=== PATIENT | male | born 1965 | race Caucasian/White ===

== ENCOUNTER 2016-11-22 22:12 | Emergency (ER) | payer OTHER ==
--- NOTE | ~2016-11-22 | ER ---
PATIENT'S NAME: MARY ACUNA [facility] AGE: 51 Y [address] ROOM: [place], [place] [address] LOCATION: [facility] ADMIT DATE: 11/22/2016 ER/Outpatient Report DISCHARGE DATE: 11/22/2016 FAMILY PHYSICIAN: Physician, Unknown ATTENDING PHYSICIAN: Hiram Christensen Admission date and time documented in the medical record. I saw the patient at 2220 hours. CHIEF COMPLAINT: Medical clearance. HISTORY OF PRESENT ILLNESS: The patient is a 51-year-old male, who was brought to the emergency room by [facility] for medical clearance for long-term. He blew a 0.325 alcohol on Breathalyzer. The patient has no pain. No recent coughs, colds, flus, fever, chills, or sweats. No chest pain or shortness of breath. No abdominal pain, nausea, vomiting, or diarrhea. No incontinence of stool or urine. No joint or muscle swelling, redness, or pain. No skin eruptions or rash. No fall or trauma. No headache, eyes, ears, nose, throat, neck, or spine pain. No lightheadedness, dizziness, syncope, or near syncope. No history of neuro changes or psych issues. HOME MEDICATIONS: See attached medication list. ALLERGIES: PENICILLIN AND CEFZIL. SOCIAL HISTORY: The patient smokes a pack of cigarettes per day. Drinks alcohol on a daily basis. SIGNIFICANT PAST MEDICAL HISTORY: Hypertension, nephrolithiasis, cervical degenerative disk disease, tobacco abuse, alcohol abuse, gastroesophageal reflux, and dyslipidemia. OPERATIONS: Neck surgery, left knee ACL repair, and right knee meniscal repair. REVIEW OF SYSTEMS: All systems reviewed by me are negative with the exception of those discussed in the history of present illness. PHYSICAL EXAMINATION: PATIENT'S NAME: MARY ACUNA [facility] AGE: 51 Y [address] ROOM: [place], [place] [address] LOCATION: [facility] ADMIT DATE: 11/22/2016 ER/Outpatient Report DISCHARGE DATE: 11/22/2016 FAMILY PHYSICIAN: Physician, Unknown ATTENDING PHYSICIAN: Hiram Christensen VITAL SIGNS: Temperature 97.8 tympanic, pulse 89, respirations 16, blood pressure 139/88, and O2 saturation on room air is 96%. HEAD: Normocephalic. EYES: Extraocular muscles intact. PERRL. EARS, NOSE, THROAT: Clear. Mucous membranes moist. Teeth, jaw intact. NECK: No nuchal rigidity. No findings of adenopathy. LUNGS: Clear. No rales, rhonchi, or wheezes. HEART: Regular. Pulses are palpable. ABDOMEN: Soft, nondistended, and nontender. Good bowel tones. No organomegaly or abnormal mass palpable. EXTREMITIES: No peripheral edema, cyanosis, or deformity. NEUROVASCULAR: Intact. SKIN: Clear. No skin eruptions or rash. IMPRESSION: 1. Medical clearance. 2. Acute alcohol intoxication and alcohol abuse. 3. Tobacco abuse. 4. Hypertension. PLAN: The patient was discharged from the emergency department in [facility] custody for long-term. Follow up with personal physician as needed. MD JASBIR BOWERS/modl /[id number] d: 11/23/16 0007 t: 11/23/16 1814, OUTPATIENT REPORT
== END 2016-11-22 22:34 | disposition disaster alternative care site (69) ==
LOC: GMED 22:12
DX: F10.129 Alcohol abuse with intoxication, unspecified (principal); F17.210 Nicotine dependence, cigarettes, uncomplicated; I10 Essential (primary) hypertension; K21.9 Gastro-esophageal reflux disease without esophagitis; E78.5 Hyperlipidemia, unspecified; Z98.890 Other specified postprocedural states